=== PATIENT | female | born 1940 | race Caucasian/White ===

== ENCOUNTER → 2024-11-25 | Outpatient (CLI) | payer OTHER, SELFPAY ==
[2024-11-25 10:58] LABS: Albumin, Serum 4.7 gm/dL (3.4-4.8); Anion Gap 6 (7-16); BUN/Creatinine Ratio 17 Ratio (12-20); Blood Urea Nitrogen 17 mg/dL (9-23); Calcium 9.8 mg/dL (8.3-10.6); Calcium (Corrected) 9.8 mg/dL (8.5-10.1); Carbon Dioxide 34.7 mMol/L (20.0-31.0); Chloride 103 mMol/L (98-107); Glucose 87 mg/dL (74-106); Osmolality,Calculated 287 (275-295); Phosphorous 3.4 mg/dL (2.4-5.1); Sodium 144 mMol/L (136-145); eGFR 55 See Note
== END | disposition home or self-care (01) ==
PROVIDERS: PCP Family Medicine; Referring Provider Family Medicine; Visit Provider Family Medicine
DX: R60.0 Localized edema (principal)
CPT/HCPCS: 36415; 80069; 81001